=== PATIENT | female | born 1950 | race Caucasian/White ===

== ENCOUNTER 2018-08-09 18:36 | Emergency (ER) | payer BC ==
[2018-08-09 19:09] VITALS: TEMP 97.6; BMI 25.0
--- NOTE | 2018-08-09 19:13 | PDOC ---
History of Present Illness - History of Present Illness Initial Comments: This patient is a 68 year old female with PMHx of HTN (dx 2 years ago), who presents with concern for elevated blood pressure. Patient states that 2 days ago she had a cortisone shot in her knee for her tendonitis. She was told that it could possibly cause her bp to elevate slightly. Patient states that she took her BP today and was concerned that is was higher than usual (180s systolic), she also states that she felt her heart beat really fast and felt pins and needles in her fingers and head. She states that she easily becomes anxious and decided to come to the ER. BP taken upon arrival to the ER was:144/ 80 Denies any vomiting, diaphoresis, abdominal pain. PCP:Brandi Rojas Allergies: cefazolin, penicillins Family Hx: DM (mother) <Mayte Black - Last Filed: 08/09/18 19:54> <Moira Jones - Last Filed: 08/10/18 01:03> - General Chief Complaint: Blood Pressure Problem Stated Complaint: HIGH BLOOD PRESSURE Time Seen by Provider: 08/09/18 19:11 Past History <Mayte Black - Last Filed: 08/09/18 19:54> - Past Medical History COPD: No HTN: Yes Hypercholesterolemia: Yes Psychiatric Problems: Yes (ANXIETY) Other medical history: KNEE PAIN - CORSTISONE INJECTION 08/07/18 - Suicide/Smoking/Psychosocial Hx Smoking History: Never smoked Hx Alcohol Use: No Drug/Substance Use Hx: No <Moira Jones - Last Filed: 08/10/18 01:03> - Past Medical History Allergies/Adverse Reactions: Allergies Allergy/AdvReac Type Severity Reaction Status Date / Time cefazolin [From Anc] Allergy Unknown Verified 08/09/18 18:48 Penicillins Allergy Unknown Verified 08/09/18 18:48 Home Medications: Ambulatory Orders Amlodipine Besylate [Norvasc -] 2.5 mg PO HS 08/09/18 Amlodipine Besylate [Norvasc -] 5 mg PO DAILY 08/09/18 Aspirin [Aspirin EC] 81 mg PO DAILY 08/09/18 Cholecalciferol (Vitamin D3) [Vitamin D] 2,000 unit PO DAILY 08/09/18 Lorazepam [Ativan] 0.5 mg PO HS PRN 08/09/18 Multivit-Min/Iron/Folic/Lutein [Centrum Silver Women Tablet] 1 each PO DAILY Rupert-3/Dha/Epa/Fish Oil [Fish Oil 500 mg Softgel] 1 each PO DAILY 08/09/18 Simvastatin 40 mg PO DAILY 08/09/18 Review of Systems - Review of Systems Comments:: GENERAL/CONSTITUTIONAL: No fever or chills. No weakness. HEAD, EYES, EARS, NOSE AND THROAT: No change in vision. No ear pain or discharge. No sore throat. CARDIOVASCULAR: +racing heart. No chest pain or shortness of breath. RESPIRATORY: No cough, wheezing, or hemoptysis. GASTROINTESTINAL: No nausea, vomiting, diarrhea or constipation. GENITOURINARY: No dysuria, frequency, or change in urination. MUSCULOSKELETAL: No joint or muscle swelling or pain. No neck or back pain. SKIN: No rash NEUROLOGIC: No headache, vertigo, loss of consciousness, or change in strength. +numbness/tingling in fingers and head. ENDOCRINE: No increased thirst. No abnormal weight change. HEMATOLOGIC/LYMPHATIC: No anemia, easy bleeding, or history of blood clots. ALLERGIC/IMMUNOLOGIC: No hives or skin allergy. <Mayte Black - Last Filed: 08/09/18 19:54> *Physical Exam - Vital Signs Last Vital Signs Temp Pulse Resp BP Pulse Ox 97.6 F 90 16 144/80 98 08/09/18 18:37 08/09/18 18:37 08/09/18 18:37 08/09/18 18:37 08/09/18 18:37 - Physical Exam Comments: GENERAL: Awake, alert, and fully oriented, in no acute distress HEAD: No signs of trauma EYES: PERRLA, EOMI, sclera anicteric, conjunctiva clear ENT: Auricles normal inspection, hearing grossly normal, nares patent, oropharynx clear without exudates. Moist mucosa NECK: Normal ROM, supple, no lymphadenopathy, JVD, or masses LUNGS: Breath sounds equal, clear to auscultation bilaterally. No wheezes, and no crackles HEART: Regular rate and rhythm, normal S1 and S2, no murmurs, rubs or gallops ABDOMEN: Soft, nontender, normoactive bowel sounds. No guarding, no rebound. No masses EXTREMITIES: Normal range of motion, no edema. No clubbing or cyanosis. No cords, erythema, or tenderness NEUROLOGICAL: Cranial nerves II through XII grossly intact. Normal speech, normal gait SKIN: Warm, Dry, normal turgor, no rashes or lesions noted. 08/09/18 20:02 <Mayte Black - Last Filed: 08/09/18 19:54> - Vital Signs Last Vital Signs Temp Pulse Resp BP Pulse Ox 97.6 F 90 16 144/80 98 08/09/18 18:37 08/09/18 18:37 08/09/18 18:37 08/09/18 18:37 08/09/18 18:37 <Moira Jones - Last Filed: 08/10/18 01:03> Moderate Sedation - Procedure Monitoring Vital Signs: Procedure Monitoring Vital Signs Temperature 97.6 F 08/09/18 18:37 Pulse Rate 90 08/09/18 18:37 Respiratory Rate 16 08/09/18 18:37 Blood Pressure 144/80 08/09/18 18:37 O2 Sat by Pulse Oximetry (%) 98 08/09/18 18:37 <Mayte Black - Last Filed: 08/09/18 19:54> - Procedure Monitoring Vital Signs: Procedure Monitoring Vital Signs Temperature 97.6 F 08/09/18 18:37 Pulse Rate 90 08/09/18 18:37 Respiratory Rate 16 08/09/18 18:37 Blood Pressure 144/80 08/09/18 18:37 O2 Sat by Pulse Oximetry (%) 98 08/09/18 18:37 <Moira Jones - Last Filed: 08/10/18 01:03> ED Treatment Course - LABORATORY CBC & Chemistry Diagram: 08/09/18 19:40 08/09/18 19:40 <Mayte Black - Last Filed: 08/09/18 19:54> - LABORATORY CBC & Chemistry Diagram: 08/09/18 19:40 08/09/18 19:40 <Moira Jones - Last Filed: 08/10/18 01:03> Medical Decision Making - Medical Decision Making EKG no acute findings. Labs all wnl (TSH pending at discharge- off-hours at [facility]). Low suspicion for ACS, atypical presentation. Stable for DC home. 02/25/19 01:03 TSH is mildly elevated. Callback request placed so that results can be relayed to patient during normal business hours. <Moira Jones - Last Filed: 08/10/18 01:03> *DC/Admit/Observation/Transfer - Attestations Scribe Attestion: 08/09/18 20:02 Documentation prepared by Mayte Black, acting as medical billing and coding specialist for Moira Jones MD. <Mayte Black - Last Filed: 08/09/18 19:54> - Discharge Dispostion Decision to Admit order: No <Moira Jones - Last Filed: 08/10/18 01:03> Diagnosis at time of Disposition: Palpitations - Discharge Dispostion Disposition: HOME Condition at time of disposition: Stable - Referrals Referrals: Brandi Rojas MD [Primary Care Provider] - - Patient Instructions Printed Discharge Instructions: DI for Palpitations - Post Discharge Activity
[2018-08-09 19:59] LABS: BASO % 0.4 % (0-2.0); EOS % 0.9 % (0-4.5); HEMATOCRIT 39.7 % (32.4-45.2); HEMOGLOBIN 13.1 GM/dl (10.7-15.3); LYMPH % 15.5 % (8-40); MCH 28.7 pg (25.7-33.7); MEAN CELL VOLUME 86.9 fl (80-96); MEAN PLT VOLUME 8.2 fl (7.5-11.1); MONO % 7.5 % (3.8-10.2); NEUT % 75.7 % (42.8-82.8); PLATELET COUNT 274 K/MM3 (134-434); RBC 4.57 M/mm3 (3.60-5.2); RDW 13.3 % (11.6-15.6); WHITE BLOOD COUNT 8.6 K/mm3 (4.0-10.8)
[2018-08-09 20:19] LABS: ALBUMIN 3.9 g/dl (3.4-5.0); ALK PHOS 82 U/L (45-117); ANION GAP 11 MMOL/L (8-16); BILIRUBIN,TOTAL 0.4 mg/dl (0.2-1); BLOOD UREA NITROGEN 29 mg/dl (7-18); CALCIUM 9.5 mg/dl (8.5-10); CHLORIDE 103 mmol/L (98-107); CO2 22 mmol/L (21-32); CREATININE 1.1 mg/dl (0.55-1.3); GLUCOSE,RANDOM 127 mg/dl (74-106); POTASSIUM 3.6 mmol/L (3.5-5.1); SGOT/AST 21 U/L (15-37); SGPT/ALT 21 U/L (13-61); SODIUM 136 mmol/L (136-145); TOT PROT 7.2 g/dl (6.4-8.2)
[2018-08-09 20:50] VITALS: BP 139/82; PULSE 71
[2018-08-09] MEDS ORDERED: LORazepam 0.5 MG TABLET PO ONE (20:50)
[2018-08-09] MEDS ORDERED: LORazepam 0.5 MG TABLET ONE (20:53)
--- NOTE | 2018-08-10 09:44 | EKG ---
Test Reason : Blood Pressure : / mmHG Vent. Rate : 065 BPM Atrial Rate : 065 BPM P-R Int : 142 ms QRS Dur : 106 ms QT Int : 402 ms P-R-T Axes : 058 014 020 degrees QTc Int : 418 ms NORMAL SINUS RHYTHM POSSIBLE LEFT ATRIAL ENLARGEMENT INCOMPLETE RIGHT BUNDLE BRANCH BLOCK BORDERLINE ECG NO PREVIOUS ECGS AVAILABLE Confirmed by GABINO SOTO, HERNANDEZ ([id number]) on 08/10/2018 9:43:55 AM Referred By: DR BUTTS Confirmed By:HERNANDEZ LLOYD MD
== END 2018-08-09 21:10 | disposition home or self-care (01) ==
LOC: FER 18:36
DX: R00.2 Palpitations (principal); I10 Essential (primary) hypertension; F41.9 Anxiety disorder, unspecified
CPT/HCPCS: 36415; 71045-TC-FY; 80053; 84443; 84484; 85025; 93005; 99283-25

== ENCOUNTER 2022-08-14 06:58 | Day surgery (SDC) | payer BC ==
[2022-08-07 11:17] VITALS: BMI 25.3
[2022-08-14] MEDS ORDERED: LIDOCAINE HCL/PF 1% SDV 5ML VIAL ONE (07:07)
[2022-08-14] MEDS ORDERED: TETRACAINE 0.5% OPHTH SOLN 2 ML BOTTLE ONE (07:07)
[2022-08-14] MEDS ORDERED: BSS (NA/CA/MG/K) BALANCED SALT SOLUTION OPHTH SOLN 15 ML BOTTLE ONE (07:07)
[2022-08-14] MEDS ORDERED: NEO/POLYMYX B SULF/DEXAMETH OPHTHALMIC 5ML BOTTLE ONE (07:08)
[2022-08-14] MEDS ORDERED: CARBACHOL 0.01% INTRA-OCULAR 1.5 ML VIAL ONE (07:08)
[2022-08-14] MEDS ORDERED: MIDAZOLAM HCL 2 MG/2 ML SINGLE DOSE VIAL ONE (07:33)
[2022-08-14] MEDS: CYCLOPENTOLATE 2% OPHTH SOLN 2 ML BOTTLE ONE ×3 (07:35→07:45)
[2022-08-14] MEDS: CIPROFLOXACIN 0.3% EYE DROPS 5 ML BOTTLE ONE ×3 (07:35→07:45)
[2022-08-14] MEDS: PHENYLEPHRINE 2.5% OPTHALMIC DROP 2ML BOTTLE ONE ×3 (07:35→07:45)
[2022-08-14] MEDS: TROPICAMIDE 1% OPHTH SOLN 15 ML BOTTLE ONE ×3 (07:35→07:45)
[2022-08-14 07:38] VITALS: TEMP 97.9
[2022-08-14 09:28] VITALS: BP 128/59; PULSE 61; RESP 18
== END 2022-08-14 09:50 | disposition home or self-care (01) ==
LOC: FASU 06:58
PROVIDERS: ATTEND Ophthalmology
PROC: 08RK3JZ Replacement of Left Lens with Synthetic Substitute, Percutaneous Approach (ICD-10-PCS; principal; 2022-08-14 09:01)
DX: H26.8 Other specified cataract (principal)
CPT/HCPCS: 66984; V2632

== ENCOUNTER 2022-10-09 09:26 | Day surgery (SDC) | payer BC ==
[2022-10-03 13:48] VITALS: BMI 25.3
[2022-10-09] MEDS ORDERED: TETRACAINE 0.5% OPHTH SOLN 2 ML BOTTLE ONE (10:15)
[2022-10-09] MEDS ORDERED: NEO/POLYMYX B SULF/DEXAMETH OPHTHALMIC 5ML BOTTLE ONE (10:15)
[2022-10-09] MEDS ORDERED: LIDOCAINE 1% P/F 10 MG/ML VIAL ONE (10:15)
[2022-10-09] MEDS ORDERED: CARBACHOL 0.01% INTRA-OCULAR 1.5 ML VIAL ONE (10:15)
[2022-10-09] MEDS ORDERED: BSS (NA/CA/MG/K) BALANCED SALT SOLUTION OPHTH SOLN 15 ML BOTTLE ONE (10:15)
[2022-10-09] MEDS: TROPICAMIDE 1% OPHTH SOLN 15 ML BOTTLE ONE ×3 (10:35→10:45)
[2022-10-09] MEDS: PHENYLEPHRINE 2.5% OPTHALMIC DROP 2ML BOTTLE ONE ×3 (10:35→10:45)
[2022-10-09] MEDS: CYCLOPENTOLATE 2% OPHTH SOLN 2 ML BOTTLE ONE ×3 (10:35→10:45)
[2022-10-09] MEDS: CIPROFLOXACIN 0.3% EYE DROPS 5 ML BOTTLE ONE ×3 (10:35→10:45)
[2022-10-09] MEDS ORDERED: MIDAZOLAM HCL 2 MG/2 ML SINGLE DOSE VIAL ONE (11:37)
[2022-10-09 12:56] VITALS: RESP 16; TEMP 98
[2022-10-09 13:04] VITALS: BP 127/72; PULSE 68
== END 2022-10-09 13:05 | disposition home or self-care (01) ==
LOC: FASU 09:26
PROVIDERS: ATTEND Ophthalmology
PROC: 08RJ3JZ Replacement of Right Lens with Synthetic Substitute, Percutaneous Approach (ICD-10-PCS; principal; 2022-10-09 11:46)
DX: H26.8 Other specified cataract (principal)
CPT/HCPCS: 66984; V2632